=== PATIENT | female | born 1980 | race Caucasian/White ===

== ENCOUNTER → 2016-07-28 | Outpatient (CLI) | payer OTHER, BC ==
[2016-07-28 13:45] VITALS: BP 150/96; PULSE 91; RESP 16; TEMP 98.4; BMI 52.6
--- NOTE | 2016-07-28 14:09 | P.BASOAP ---
Subjective Principal diagnosis: Morbid obesity Patient seen today on follow-up for a diagnosis of morbid obesity. The patient has had a slight weight gain since her last visit in April. Other than that she has no new complaints. She underwent an upper endoscopy in April which showed only mild gastritis. She obtained her psychiatric evaluation last week. We have a medical clearance letter signed by her physician's campus administrative assistant. She has not had lab work. She did have an EKG performed at her primary care physician's office. Objective - Vital Signs Vital signs: Vital Signs Temp 98.4 F 07/28/16 13:40 Pulse 91 07/28/16 13:40 Resp 16 07/28/16 13:40 BP 150/96 07/28/16 13:40 Pulse Ox Intake & Output 07/27/16 07/28/16 07/28/16 18:59 06:59 18:59 Weight 143.471 kg - Exam Abdomen: Soft, nontender, nondistended Assessment/Plan (1) Morbid obesity Narrative/Plan: The patient discussed once again the upcoming sleeve gastrectomy procedure. The associated risks were reviewed in detail and the complication sheet was reviewed. We will await the patient's preoperative lab work. We'll schedule the patient for upcoming sleeve gastrectomy with the associated risks reviewed. Plan: Date: 07/28/16 Initial Weight: 140.523 kg Initial BMI: 51.5 Current Weight: 143.471 kg Current BMI: 52.6 Type of Surgery: Total Volume in Band: Previous Volume: Volume Removed: Volume Added: Band Size:
== END | disposition home or self-care (01) ==
LOC: BARWHC3 13:28
PROVIDERS: ATTEND Surgery
DX: Z01.818 Encounter for other preprocedural examination (principal)
CPT/HCPCS: 99211

== ENCOUNTER → 2016-08-03 | Outpatient (CLI) | payer OTHER, BC ==
[2016-08-03 13:42] VITALS: BMI 53.4
== END | disposition home or self-care (01) ==
LOC: BARWHC3 08:47
PROVIDERS: ATTEND Surgery
DX: Z71.3 Dietary counseling and surveillance (principal); E66.01 Morbid (severe) obesity due to excess calories; Z68.43 Body mass index [BMI] 50.0-59.9, adult
CPT/HCPCS: 97804

== ENCOUNTER 2016-09-25 05:57 | Inpatient (IN) | payer OTHER, BC ==
[~2016-09-25 05:57] MED LIST: DEXAMETHASONE SOD PHOSPHATE 10 MG/ML 1 ML VIAL IV ONE; ENOXAPARIN 60 MG/0.6 ML SYRINGE SQ ONE; MIDAZOLAM 2 MG/2 ML VIAL IV PRN; ONDANSETRON 4 MG/2 ML VIAL IVP ONE; SCOPOLAMINE 1.5MG/72HR PATCH TRANSDERM ONE; ceFAZolin 3 GM in SODIUM CHLORIDE 0.9% 100 ML IVPB ONE
[2016-09-25] MEDS: LACTATED RINGERS 1,000 ML IV SCH ×2 (06:38→23:39)
[2016-09-25] MEDS ORDERED: METHYLENE BLUE 15 MG in SODIUM CHLORIDE 0.9% 500 ML IRRIGATION ONE (07:06)
--- NOTE | 2016-09-25 07:28 | P.GSHP ---
History of Present Illness H&P Date: 09/25/16 Chief Complaint: Morbid obesity Patient here today for elective sleeve gastrectomy. Patient is been followed in the bariatric center since last year. She suffered with morbid obesity for the majority of her life. She has tried a variety of different weight loss diet and methods without sustained success. Denies DVT or dysphagia in the past. Recent upper endoscopy in April showed mild gastritis. Medical comorbidities include reflux disease. No upper abdominal surgeries in the past. BMI 49.7. Past Medical History Past Medical History: GERD/Reflux, Thyroid Disorder Additional Past Medical History / Comment(s): hypotension , hypothyroid. History of Any Multi-Drug Resistant Organisms: None Reported Past Surgical History: Appendectomy, Section, Tonsillectomy, Tubal Ligation, Uterine Ablation Additional Past Surgical History / Comment(s): x2, Past Anesthesia/Blood Transfusion Reactions: No Reported Reaction Past Psychological History: No Psychological Hx Reported Smoking Status: Never smoker Past Alcohol Use History: Occasional Past Drug Use History: None Reported - Past Family History Mother Family Medical History: Cancer Additional Family Medical History / Comment(s): lap band bariatric surgery Father Family Medical History: Coronary Artery Disease (CAD), Diabetes Mellitus, Hypertension Additional Family Medical History / Comment(s): Quadruple bypass at age 60, Medications and Allergies Home Medications Medication Instructions Recorded Confirmed Type Levothyroxine Sodium [Synthroid] 50 mcg PO DAILY 02/25/16 09/25/16 History Multivitamin [Men's Multi-Vitamin] 1 each PO DAILY 09/16/16 09/25/16 History Allergies Allergy/AdvReac Type Severity Reaction Status Date / Time No Known Allergies Allergy Verified 09/25/16 06:18 Surgical - Exam Vital Signs Temp Pulse Resp BP Pulse Ox 97.2 F L 70 16 126/62 97 09/25/16 06:37 09/25/16 06:37 09/25/16 06:37 09/25/16 06:37 09/25/16 06:37 Physical exam: General: Well-developed, well-nourished HEENT: Normocephalic, sclerae nonicteric Abdomen: Nontender, nondistended Extremities: No edema Neuro: Alert and oriented Assessment and Plan (1) Morbid obesity Narrative/Plan: Will proceed with sleeve gastrectomy at this time. The surgical risks were discussed in detail with the patient and her family. These risks were noted to include but not limited to bleeding, infection, leak, stenosis, abscess, peritonitis, fistula formation, chronic reflux, poor weight loss, [place], PE, DVT, and . The patient understands and wishes to proceed at this time. Status: Acute
[2016-09-25] MEDS ORDERED: GLYCOPYRROLATE 0.2 MG/ML 2 ML VIAL ONE (07:50)
[2016-09-25] MEDS ORDERED: PROPOFOL 10 MG/ML 20 ML VIAL IV ONE (07:50)
[2016-09-25] MEDS ORDERED: NEOSTIGMINE 1 MG/ML 10 ML VIAL ONE (07:50)
[2016-09-25] MEDS ORDERED: LIDOCAINE 1% INJ 10MG/ML (20 ML MDV) ONE (07:50)
[2016-09-25] MEDS ORDERED: ROCURONIUM BROMIDE 10 MG/ML 10 ML VIAL IV ONE (07:50)
[2016-09-25] MEDS ORDERED: SUCCINYLCHOLINE CHLORIDE 100 MG/5 ML SYR IV ONE (07:50)
[2016-09-25] MEDS ORDERED: MIDAZOLAM 2 MG/2 ML VIAL ONE (07:50)
[2016-09-25] MEDS ORDERED: HYDROmorphone (PF) 1 MG/ML ONE (07:50)
[2016-09-25] MEDS ORDERED: fentaNYL (PF) 50 MCG/ML 2 ML AMP ONE (07:50)
[2016-09-25] MEDS ORDERED: BUPIVACAIN-EPI 0.25%-1:200,000 30 ML VIAL SQ ONE ×2 (08:17)
[2016-09-25] MEDS ORDERED: LACTATED RINGERS 1,000 ML IV ONE (08:56)
[2016-09-25] MEDS ORDERED: KETOROLAC 30 MG/ML 1 ML VIAL IVP ONE (10:06)
[2016-09-25] MEDS ORDERED: NALOXONE 0.4 MG/ML 1 ML VIAL IV PRN (10:11)
[2016-09-25] MEDS ORDERED: diphenhydrAMINE 50 MG/ML 1 ML VIAL IVP PRN (10:11)
--- NOTE | 2016-09-25 10:16 | P.OP ---
Date of Procedure: 09/25/16 Procedure(s) Performed: PREOPERATIVE DIAGNOSIS: Morbid obesity, GERD POSTOPERATIVE DIAGNOSIS: Same PROCEDURE: Laparoscopic sleeve gastrectomy SURGEON: Adela EBL: Minimal ANESTHESIA: General COMPLICATIONS: None OPERATIVE PROCEDURE: Patient was placed in the operating table in the supine position. She was placed under general anesthesia at that time. The abdomen was prepped and draped in sterile fashion after the patient was placed in lithotomy. A 5 mm optical trocar was used to enter the abdominal cavity in the left upper quadrant. Insufflation took place to 15 millimeters mercury. An additional right subxiphoid 5 mm trocar was then placed under direct relation and then removed. 2 additional 5 mm trochars were placed in the right upper quadrant and left upper quadrant under direct visualization and a 15 mm trocar in the supraumbilical location. The liver was retracted using a medium Sergio liver retractor through the right subxiphoid trocar site. The hiatus was inspected. No visible hiatal hernia was seen. At that point I moved to the mid aspect of the greater curvature the stomach. The short gastric vasculature was divided using a LigaSure device proximally. I then switched and divided the short gastrics distally to a 3-4 cm from the pylorus. The dissection took place up to the left diaphragmatic crura at that point. The posterior short gastrics were likewise divided using the LigaSure device. Once the stomach was fully mobilized the blunt tipped 40-Polish bougie dilator was advanced into the stomach and advanced all the way to the prepyloric location. A black echelon 60 stapler was utilized and fired tangentially across the antrum taking care to avoid narrowing at the incisura angularis. Subsequent firings of the stapler took place. A total of 4 green echelon 60 staplers with seam guard took place proximally staying on the outer edge of our dilator. Once we reached the most proximal portion of the stomach a single firing of the gold echelon 60 stapler without seen guard took place. This only covered a distance of about 1 cm. The oral gastric tube was reinserted. The stomach was insufflated with approximately 100 mL of methylene blue. No evidence of leak or obstruction was seen. Tisseel fibrin glue was then sprayed along the entire length of the staple line. A single area of bleeding was identified at the most distal aspect of the staple line. This was controlled oh millimeter Ligaclip. At that time additional bleeding was identified. The distal aspect of the sleeve was then reapproximated to the gastrosplenic and gastrocolic ligament using a short running 20 strata fix suture. This was done to prevent kinking or twisting of the sleeve. The stomach remnant was removed from the 15 mm trocar site without difficulty. The fascia at the 15 more site was closed using interrupted 0 Vicryl sutures with the laparoscopic suture passer and Bob Carlos technique. The insufflation was evacuated. The skin at all 5 incisions were closed using 4-0 Monocryl sutures. Steri-Strips and sterile dressings were then applied. DISPOSITION: Stable to recovery room
[2016-09-25] MEDS: HYDROmorphone 1 MG/ML 1 ML SYRINGE IVP PRN ×4 (10:30→20:39)
[2016-09-25] MEDS: 0.9% NACL WITH KCL 20 MEQ/L 1,000 ML IV SCH ×3 (12:27→20:40)
[2016-09-25] MEDS: ONDANSETRON 4 MG/2 ML VIAL IVP PRN ×2 (13:29→20:39)
[2016-09-25] MEDS: ALBUTEROL NEBULIZED 2.5 MG/3 ML INHALATION SCH ×2 (13:30→21:57)
[2016-09-25] MEDS: SIMETHICONE 40 MG/0.6 ML DROPS 2,000 MG/30 ML BOTTLE PO PRN (16:25)
[2016-09-25] MEDS: HYOSCYAMINE ORAL DROPS 1.875 MG/15 ML BOTTLE PO PRN (16:26)
[2016-09-26] MEDS: ONDANSETRON 4 MG/2 ML VIAL IVP PRN ×2 (03:48→12:42)
[2016-09-26] MEDS: HYDROmorphone 1 MG/ML 1 ML SYRINGE IVP PRN (03:48)
[2016-09-26] MEDS: SIMETHICONE 40 MG/0.6 ML DROPS 2,000 MG/30 ML BOTTLE PO PRN (03:50)
[2016-09-26] MEDS: HYOSCYAMINE ORAL DROPS 1.875 MG/15 ML BOTTLE PO PRN ×2 (03:50→09:53)
[2016-09-26] MEDS: 0.9% NACL WITH KCL 20 MEQ/L 1,000 ML IV SCH (04:02)
[2016-09-26] MEDS: METOCLOPRAMIDE 5 MG/ML 2 ML VIAL IVP PRN ×3 (07:08→23:54)
[2016-09-26] MEDS: ALBUTEROL NEBULIZED 2.5 MG/3 ML INHALATION SCH ×4 (08:52→19:06)
[2016-09-26 09:04] LABS: Basophils % (A) 0 %; CHCM 34.3; Eosinophils % (A) 0 %; HDW 3.35; HGB 12.8 gm/dL (11.4-16.0); Luc # (Auto) 0.11; Luc % (Auto) 1; Lymphocytes # (A) 1.3 k/uL (1.0-4.8); Lymphocytes % (A) 12 %; MCH 31.5 pg (25.0-35.0); MCHC 34.6 g/dL (31.0-37.0); MCV 90.9 fL (80.0-100.0); Mean Platelet Volume 7.4; Monocytes # (A) 0.5 k/uL (0-1.0); Monocytes % (A) 5 %; Neutrophils # (A) 8.9 k/uL (1.3-7.7); Neutrophils % (A) 82 %; RBC 4.07 m/uL (3.80-5.40); RDW 13.4 % (11.5-15.5); WBC 10.9 k/uL (3.8-10.6); WBC (Perox) 11.07
[2016-09-26 09:25] LABS: Anion Gap 12 mmol/L; Calcium 8.5 mg/dL (8.4-10.2); Carbon Dioxide 21 mmol/L (22-30); Chloride 106 mmol/L (98-107); Non-African American GFR(MDRD) >60 (>60 ml/min/1.73 sqM); Sodium 139 mmol/L (137-145)
[2016-09-26 09:29] LABS: Blood Urea Nitrogen 6 mg/dL (7-17); Magnesium 1.9 mg/dL (1.6-2.3); Phosphorous 2.4 mg/dL (2.5-4.5); Potassium 4.1 mmol/L (3.5-5.1)
[2016-09-26] MEDS: ENOXAPARIN 40 MG/0.4 ML SYRINGE SQ SCH ×2 (09:38→22:17)
[2016-09-26] MEDS: PANTOPRAZOLE 40 MG/10 ML VIAL IV SCH (09:38)
[2016-09-26] MEDS ORDERED: SODIUM CHLORIDE 0.9% 1,000 ML BAG ONE (10:34)
[2016-09-26] MEDS: 1: MVI, ADULT NO.4 WITH VIT K 10 ML, THIAMINE 100 MG, FOLIC ACID 1 MG, POTASSIUM CHLORID IV SCH ×12 (10:34→18:08)
[2016-09-26 12:57] VITALS: BMI 49.7
--- NOTE | 2016-09-26 13:29 | FL ---
EXAMINATION TYPE: FL UGI DATE OF EXAM: 09/26/2016 11:20 AM COMPARISON: NONE HISTORY: Postop bariatric surgery, gastric sleeve TECHNIQUE: Patient was given 25 cc of Omnipaque 350 and attention directed to the gastroesophageal ju nction, 38 seconds fluoroscopy time supplied. 2 images obtained. FINDINGS: There is no extravasation of contrast. Postop changes are noted to the stomach. No obstruct ion to flow. Basilar atelectatic changes are present. IMPRESSION: No evident complication status post bariatric surgery
[2016-09-26] MEDS ORDERED: SCOPOLAMINE 1.5MG/72HR PATCH TRANSDERM STA (14:17)
[2016-09-26] MEDS ORDERED: SODIUM CHLORIDE 0.9% 1,000 ML IV ONE (14:18)
--- NOTE | 2016-09-26 14:23 | P.PN ---
Subjective Principal diagnosis: Morbid obesity Patient doing well today. She is tolerating her clear liquid diet. She was nauseous last night but that is improving. Her blood cell count today is 10.9. Upper GI shows no evidence of leak or obstruction. Objective - Vital Signs Vital signs: Vital Signs Temp 98.6 F 09/26/16 07:00 Pulse 111 H 09/26/16 08:50 Resp 22 09/26/16 08:50 BP 169/90 09/26/16 07:00 Pulse Ox 98 09/26/16 08:50 Intake & Output 09/25/16 09/26/16 09/26/16 18:59 06:59 18:59 Intake Total 1300 1800 150 Output Total 1005 1000 300 Balance 295 800 -150 Weight 139.706 kg Intake: IV 1300 1800 150 0.9% NaCl with KCl 20 Meq 1800 150 /l 1,000 ml @ 150 mls/hr IV .Q6H40M [facility] Rx#: [id number] Output: Urine 1000 1000 300 Estimated Blood Loss 5 Other: Voiding Method Toilet - Exam Abdomen: Soft, nondistended, mild incisional tenderness - Labs CBC & Chem 7: 09/26/16 08:19 09/26/16 08:19 Labs: Abnormal Lab Results - Last 24 Hours (Table) 09/26/16 09/26/16 Range/Units 08:19 08:19 WBC 10.9 H (3.8-10.6) k/uL Neutrophils # 8.9 H (1.3-7.7) k/uL Carbon Dioxide 21 L (22-30) mmol/L BUN 6 L (7-17) mg/dL Phosphorus 2.4 L (2.5-4.5) mg/dL Assessment and Plan (1) Morbid obesity Narrative/Plan: Continue bariatric clear liquid diet. Activity levels. Add Toradol for pain control. Status: Acute
[2016-09-26] MEDS: KETOROLAC 30 MG/ML 1 ML VIAL IVP SCH ×2 (16:13→23:54)
--- NOTE | 2016-09-26 17:42 | P.CONS ---
History of Present Illness - Reason for Consult Consult date: 09/26/16 Medical management - History of Present Illness 36 yr old with morbid obesity is brought into the hospital for elective sleeve gastrectomy PMH hypothyroidism today states to have nausea, denies having headaches, blurry vision chest pain, ANTONIA does complaint of abdominal discomfort, diffuse. No urinary urgency or frequency reported. Review of Systems All systems: negative (Noted in HPI) Past Medical History Past Medical History: GERD/Reflux, Thyroid Disorder Additional Past Medical History / Comment(s): hypotension , hypothyroid. History of Any Multi-Drug Resistant Organisms: None Reported Past Surgical History: Appendectomy, Section, Tonsillectomy, Tubal Ligation, Uterine Ablation Additional Past Surgical History / Comment(s): x2, Past Anesthesia/Blood Transfusion Reactions: No Reported Reaction Past Psychological History: No Psychological Hx Reported Smoking Status: Never smoker Past Alcohol Use History: Occasional Past Drug Use History: None Reported - Past Family History Mother Family Medical History: Cancer Additional Family Medical History / Comment(s): lap band bariatric surgery Father Family Medical History: Coronary Artery Disease (CAD), Diabetes Mellitus, Hypertension, Prostate Disorder Additional Family Medical History / Comment(s): Quadruple bypass at age 60, Medications and Allergies Home Medications Medication Instructions Recorded Confirmed Type Levothyroxine Sodium [Synthroid] 50 mcg PO DAILY 02/25/16 09/25/16 History Multivitamin [Men's Multi-Vitamin] 1 tab PO DAILY 09/16/16 09/25/16 History Allergies Allergy/AdvReac Type Severity Reaction Status Date / Time No Known Allergies Allergy Verified 09/25/16 10:53 Physical Exam Vitals: Vital Signs Temp Pulse Pulse Resp BP Pulse Ox 09/26/16 16:14 98.6 F 95 16 125/85 09/26/16 08:50 111 H 22 98 09/26/16 07:00 98.6 F 97 16 169/90 98 09/26/16 02:00 97.7 F 90 16 179/83 98 09/25/16 23:25 96 09/25/16 20:45 98.2 F 79 17 132/92 98 09/25/16 20:39 17 Intake and Output 09/26/16 09/26/16 09/26/16 06:59 14:59 22:59 Intake Total 5143 916 7247 Output Total 800 300 Balance 1000 -150 1000 Intake: IV 1800 150 0.9% NaCl with KCl 20 Meq 1800 150 /l 1,000 ml @ 150 mls/hr IV .Q6H40M [facility] Rx#: [id number] Intake, IV Titration 1000 Amount Sodium Chloride 0.9% 1, 1000 000 ml @ 999 mls/hr IV . Q1H1M [facility] Rx#:[id number] Output: Urine 800 300 Other: Weight 139.706 kg Patient Weight 09/27/16 06:59 Weight 139.706 kg - Constitutional General appearance: morbidly obese - EENT Eyes: PERRLA - Neck Neck: normal ROM, no rigidity - Respiratory Respiratory: bilateral: CTA, negative: dullness, rales, rhonchi, wheezing - Cardiovascular Rhythm: regular (rhythm however tachycardic.) Heart sounds: normal: S1, S2 Abnormal Heart Sounds: no systolic murmur - Gastrointestinal General gastrointestinal: decreased bowel sounds, soft Localized gastrointestinal: tender: diffuse - Integumentary Integumentary: normal - Neurologic Neurologic: CNII-XII intact - Psychiatric Psychiatric: A&O x's 3, appropriate affect Results CBC & Chem 7: 09/26/16 08:19 09/26/16 08:19 Labs: Abnormal Lab Results - Last 24 Hours (Table) 09/26/16 09/26/16 Range/Units 08:19 08:19 WBC 10.9 H (3.8-10.6) k/uL Neutrophils # 8.9 H (1.3-7.7) k/uL Carbon Dioxide 21 L (22-30) mmol/L BUN 6 L (7-17) mg/dL Phosphorus 2.4 L (2.5-4.5) mg/dL Assessment and Plan Plan: 1. Morbid obesity, s/p sleeve gastrectomy 2. hypothyroidism Plan 1 l bolus ivf post op management Per Dr Hand Pain control IS Encourage ambulation Thank you for the consultation, will follow the pt along with you.
[2016-09-27] MEDS: LACTATED RINGERS 1,000 ML IV SCH (02:07)
[2016-09-27] MEDS: KETOROLAC 30 MG/ML 1 ML VIAL IVP SCH ×2 (06:08→13:02)
[2016-09-27] MEDS ORDERED: LEVOTHYROXINE 50 MCG TAB PO SCH (06:30)
[2016-09-27] MEDS ORDERED: SODIUM CHLORIDE 0.9% 1,000 ML BAG ONE (06:43)
[2016-09-27] MEDS: 1: MVI, ADULT NO.4 WITH VIT K 10 ML, THIAMINE 100 MG, FOLIC ACID 1 MG, POTASSIUM CHLORID IV SCH ×6 (06:43)
[2016-09-27] MEDS: ALBUTEROL NEBULIZED 2.5 MG/3 ML INHALATION SCH ×2 (07:34→11:21)
--- NOTE | 2016-09-27 07:52 | P.PN ---
Subjective Principal diagnosis: Morbid obesity Patient doing well today. No further nausea. Still with little oral intake. Denies pain. No tachycardic Objective - Vital Signs Vital signs: Vital Signs Temp 98.1 F 09/27/16 04:04 Pulse 95 09/27/16 04:04 Resp 18 09/27/16 04:04 BP 148/81 09/27/16 04:04 Pulse Ox 92 L 09/27/16 04:04 Intake & Output 09/26/16 09/27/16 09/27/16 18:59 06:59 18:59 Intake Total 1983 1021.2 Output Total 300 Balance 1683 1021.2 Weight 139.706 kg Intake: IV 150 0.9% NaCl with KCl 20 Meq 150 /l 1,000 ml @ 150 mls/hr IV .Q6H40M [facility] Rx#: [id number] Intake, IV Titration 181 1021.2 Amount Mvi, Adult No.4 with Vit 813 1021.2 K 10 ml Thiamine 100 mg Folic Acid 1 mg Potassium Chloride 20 meq In Sodium Chloride 0.9% 1, 000 ml @ 100 mls/hr IV . BY DURATION [facility] Rx#: [id number] Sodium Chloride 0.9% 1, 1000 000 ml @ 999 mls/hr IV . Q1H1M [facility] Rx#:[id number] Oral 20 Output: Urine 300 Other: Voiding Method Toilet # Voids 2 - Exam Abdomen: Soft, nondistended, incisions clean and dry, minimal tenderness at the incision site - Labs CBC & Chem 7: 09/26/16 08:19 09/26/16 08:19 Labs: Abnormal Lab Results - Last 24 Hours (Table) 09/26/16 09/26/16 Range/Units 08:19 08:19 WBC 10.9 H (3.8-10.6) k/uL Neutrophils # 8.9 H (1.3-7.7) k/uL Carbon Dioxide 21 L (22-30) mmol/L BUN 6 L (7-17) mg/dL Phosphorus 2.4 L (2.5-4.5) mg/dL Assessment and Plan (1) Morbid obesity Narrative/Plan: Continue bariatric clear liquids. Monitor the patient's input today. Anticipate possible discharge later today. Status: Acute
[2016-09-27] MEDS: PANTOPRAZOLE 40 MG/10 ML VIAL IV SCH (08:00)
[2016-09-27] MEDS: ENOXAPARIN 40 MG/0.4 ML SYRINGE SQ SCH (08:00)
[2016-09-27 08:04] VITALS: BP 146/92; PULSE 83; RESP 16; TEMP 97.9
== END 2016-09-27 14:16 | disposition home or self-care (01) | DRG 621 ==
LOC: 2ORWHC 05:57 → 3SUR 09:56
PROVIDERS: ADMIT Surgery; ATTEND Surgery
PROC: 0DB64Z3 Excision of Stomach, Percutaneous Endoscopic Approach, Vertical (ICD-10-PCS; principal; 2016-09-25 07:45)
DX: E66.01 Morbid (severe) obesity due to excess calories (principal); E03.9 Hypothyroidism, unspecified; Z68.42 Body mass index [BMI] 45.0-49.9, adult; K21.9 Gastro-esophageal reflux disease without esophagitis; K29.70 Gastritis, unspecified, without bleeding; R11.0 Nausea; Z71.3 Dietary counseling and surveillance; Z90.49 Acquired absence of other specified parts of digestive tract; Z98.51 Tubal ligation status; Z79.899 Other long term (current) drug therapy; Z83.49 Family history of other endocrine, nutritional and metabolic diseases; Z80.9 Family history of malignant neoplasm, unspecified; Z84.2 Family history of other diseases of the genitourinary system; Z83.3 Family history of diabetes mellitus; Z82.49 Family history of ischemic heart disease and other diseases of the circulatory system; Z86.79 Personal history of other diseases of the circulatory system; Z87.42 Personal history of other diseases of the female genital tract
CPT/HCPCS: 74240; 80051; 81025; 82310; 82565; 83735; 84100; 84520; 85025; 88307

== ENCOUNTER → 2016-10-06 | Outpatient (CLI) | payer OTHER, BC ==
[2016-10-06 14:35] VITALS: BP 140/85; PULSE 83; TEMP 97.8; BMI 48.6
--- NOTE | 2016-10-06 15:10 | P.BASOAP ---
Subjective Principal diagnosis: Morbid obesity patient is here today for her first postoperative visit. her surgery was September 25. weight loss is approximately 28 pounds since that time. she is having some mild heartburn at times. No pain. Appetite is minimal. No nausea or vomiting. she did have a rash at the Steri-Strip site. Heart rate is normal. Afebrile. Objective - Vital Signs Vital signs: Vital Signs Temp 97.8 F 10/06/16 14:30 Pulse 83 10/06/16 14:30 Resp BP 140/85 10/06/16 14:30 Pulse Ox Intake & Output 10/05/16 10/06/16 10/06/16 18:59 06:59 18:59 Weight 132.676 kg - Exam abdomen: Soft, nondistended, nontender, some slight rash around each incision site Assessment/Plan (1) Morbid obesity Narrative/Plan: continue dietary and exercise regimen. continue hydrocortisone cream for the rash around the incision sites. continue antiacid therapy. follow-up 2 weeks and we'll check one month labs at that time. Plan: Date: 10/06/16 Initial Weight: 140.523 kg Initial BMI: 51.5 Current Weight: 132.676 kg Current BMI: 48.6 Type of Surgery: Total Volume in Band: Previous Volume: Volume Removed: Volume Added: Band Size:
== END ==
LOC: BARWHC3 13:34
PROVIDERS: ATTEND Surgery
DX: E66.01 Morbid (severe) obesity due to excess calories (principal); Z79.899 Other long term (current) drug therapy
CPT/HCPCS: 97803; 99211

== ENCOUNTER → 2016-10-12 | Outpatient (CLI) | payer OTHER, BC ==
--- NOTE | 2016-10-12 15:10 | FL ---
EXAMINATION TYPE: FL UGI DATE OF EXAM: 10/12/2016 2:58 PM LIMITED UGI: CLINICAL HISTORY: Gastric sleeve surgery roughly 2 weeks ago with worsening pain with drinking liqui ds over last 5 days. TECHNIQUE: Limited esophagram is performed utilizing less than 10 oz of Omnipaque 350. A total of 44 seconds of fluoroscopic time was utilized during procedure. COMPARISON: Prior Limited upper GI study September 26, 2016. FINDINGS: The patient swallowed contrast without difficulty or delay. Esophageal peristalsis and mo tility are within normal limits. There is good flow of contrast along the diaphragmatic hiatus into proximal gastric sleeve with and mild delay flow from sleeve into residual pylorus and duodenal sweep . Patient remains asymptomatic. There is no evidence of contrast extravasation to suggest leak. IMPRESSION: No evidence of leak or significant obstruction status post recent gastric sleeve surgery.
--- NOTE | 2016-10-12 15:40 | CT ---
EXAMINATION TYPE: CT abdomen w con DATE OF EXAM: 10/12/2016 3:12 PM HISTORY: Upper Abdomen pain over last 5 days. Post OP Gastric sleeve in September 2016 CT DLP: 1363mGycm Automated Exposure Control for Dose Reduction was Utilized. CONTRAST: CT scan of the abdomen is performed with IV Contrast, patient injected with 100 mL of Omnipaque 300. COMPARISON: None. FINDINGS: LUNG BASES: No significant abnormality is appreciated. LIVER/GB: No significant abnormality is appreciated. PANCREAS: No significant abnormality is seen. SPLEEN: No significant abnormality is seen. ADRENALS: No significant abnormality is seen. KIDNEYS: No significant abnormality is seen. BOWEL: Surgical changes from gastric sleeve procedure are identified. Small hiatal hernia is noted. C ontrast is seen in nondistended sleeve below diaphragm extending into the nondilated proximal small b owel loops of the central abdomen. Contrast does not reach colonic level. There is no suspicious smal l or large bowel dilatation. No extravasation of contrast is seen. No pneumoperitoneum is noted. LYMPH NODES: No greater than 1cm abdominal lymph nodes are appreciated. OSSEOUS STRUCTURES: No significant abnormality is seen. OTHER: Nonspecific 8 mm soft tissue nodule anterior left mid abdominal wall on axial image 43. IMPRESSION: No significant finding is seen to account for patient's clinical symptoms. No bowel obst ruction is noted.
== END | disposition home or self-care (01) ==
LOC: RADFLMAIN 14:05
PROVIDERS: ATTEND Surgery
DX: R10.84 Generalized abdominal pain (principal); R10.9 Unspecified abdominal pain; Z98.84 Bariatric surgery status
CPT/HCPCS: 74240; 74160; Q9967

== ENCOUNTER → 2016-10-20 | Outpatient (CLI) | payer OTHER, BC ==
--- NOTE | 2016-10-20 14:39 | P.BASOAP ---
Subjective Principal diagnosis: Morbid obesity Patient seen in the clinic today on follow-up. She had her laparoscopic sleeve gastrectomy performed on 09/25. She was last seen in the office on 10/06. A proximally 10 days ago she began experiencing pain with swallowing both liquids and solids. Denied fevers or chills. She was brought in as an outpatient early last week and had a CAT scan and upper GI performed both of which were dictated as being normal. Her labs show a normal white blood cell count. Today she is afebrile. Her heart rate is normal. Upon my review of the CAT scan performed last week there does appear to be some inflammatory changes involving the proximal sleeve. There may be a contained extraluminal contrast collection in the proximal sleeve with a small foci of air. The patient states her symptoms have dramatically improved since early last week. She does admit that she is still behind when it comes to daily protein and liquid requirements. She estimates approximately 40 ounces of liquids per day. She says her pain is absent unless she takes a large swallow of liquid or solid. Objective - Vital Signs Vital signs: Intake & Output 10/19/16 10/20/16 10/20/16 18:59 06:59 18:59 Weight 127.323 kg - Exam Abdomen: Soft, nondistended, nontender, incisions clean and dry Assessment/Plan (1) Morbid obesity Narrative/Plan: The patient I discussed the CAT scan findings in detail. We reviewed her recent lab work as well. Plan at this time is to repeat her CT abdomen and pelvis to evaluate for any changes for the better or worse. Continue primarily a liquid diet for now. We'll rediscuss these findings with the patient either in person this afternoon after the study is performed or possibly by phone depending on those results. Plan: Date: Initial Weight: 140.523 kg Initial BMI: Current Weight: 127.323 kg Current BMI: Type of Surgery: Total Volume in Band: Previous Volume: Volume Removed: Volume Added: Band Size:
--- NOTE | 2016-10-20 15:21 | CT ---
EXAMINATION TYPE: CT abdomen w con DATE OF EXAM: 10/20/2016 2:56 PM COMPARISON: October 12, 2016 HISTORY: Pt states of epigastric pain, hx of gastric sleeve on September [address] DLP: 1388 mGycm CONTRAST: CT scan of the abdomen is performed with Oral Contrast and with IV Contrast, patient injected with 10 0 mL of Omnipaque 300. FINDINGS: LUNG BASES-: No visible nodule. No infiltrate. LIVER/GB: No calcified gallstones. No space occupying hepatic lesion. Biliary tree is of normal ca liber. PANCREAS: No inflammation. No distinct mass. SPLEEN: No splenic enlargement. No lesion seen. ADRENALS: No nodule. No thickening. KIDNEYS/BLADDER: No hydronephrosis. No nephrolithiasis. No disctinct renal mass. Urinary bladder g rossly unremarkable. BOWEL: Again noted are postsurgical changes of sleeve gastrectomy. Previously noted Gastric strandin g is improved although does persist. There continues to be a small focus of air adjacent to the proxi mal sleeve component near the fundus which is felt to reflect small improving not contained leak. The focus of air currently measures 5 mm versus 1.6 cm previously. No evidence for drainable abscess. No evidence for contrast extravasation. Stable hiatal hernia. Appendectomy changes. GENITAL ORGANS: Right ovarian cyst measuring 2.4 cm. LYMPH NODES: No greater than 1cm abdominal or pelvic lymph nodes are appreciated. AORTA: No significant abnormality. OSSEOUS STRUCTURES: No significant abnormality is seen. OTHER: No significant additional abnormality is seen. IMPRESSION: 1. Patient is status post sleeve gastrectomy with small contained leak near the gastric fundus again identified however appears to be improved and smaller in the interval.
== END | disposition home or self-care (01) ==
LOC: BARWHC3 13:14
PROVIDERS: ATTEND Surgery
DX: R10.13 Epigastric pain (principal)
CPT/HCPCS: 74160; 99211; Q9967

== ENCOUNTER → 2016-11-03 | Outpatient (CLI) | payer OTHER, BC ==
[2016-11-03 15:07] VITALS: BP 130/80; PULSE 76; RESP 16; TEMP 98.2; BMI 45.4
--- NOTE | 2016-11-03 18:33 | PN ---
DATE OF SERVICE: 11/03/2016 CHIEF COMPLAINT: Morbid obesity. INTERVAL HISTORY: Patient is doing much better today. Denies any pain at this time. Still feels some fullness at times. She is tolerating about 55 ounces of liquids per day and about 50 to 60 grams of protein per day. Still finds more dysphagia to liquids then she does with solids. She has had an 8 pound weight loss the last 2 weeks. Denies fevers or chills. She is afebrile with no tachycardia in the office today. She is due for one month lab works at this time. PHYSICAL EXAM: Abdomen is soft, nontender, nondistended. Incisions are clean, dry. IMPRESSION: A 36-year-old female status post sleeve gastrectomy with suspected small self-contained apical leak. PLAN: 1. Continue bariatric diet. 2. Dietary evaluation today. 3. One month lab work today. 4. Patient will follow up with me in 4 weeks. 5. Still will plan follow up CT scan possible at that time to confirm resolution.
== END | disposition home or self-care (01) ==
LOC: BARWHC3 14:49
PROVIDERS: ATTEND Surgery
DX: E66.01 Morbid (severe) obesity due to excess calories (principal); K90.89 Other intestinal malabsorption; E55.9 Vitamin D deficiency, unspecified; Z98.84 Bariatric surgery status
CPT/HCPCS: 97803; 99211

== ENCOUNTER → 2016-12-08 | Outpatient (CLI) | payer OTHER, BC ==
[2016-12-08 12:10] VITALS: BP 130/87; PULSE 75; RESP 16; TEMP 98.3; BMI 42.3
--- NOTE | 2016-12-08 12:28 | P.BASOAP ---
Subjective Principal diagnosis: Morbid obesity Patient doing well today. She is continuing to do well with her protein intake. She had 1 episode of vomiting after she drank a large volume of liquids and a short period of time. Denies pain. No significant heartburn. She had a recent UTI and was prescribed an antibiotic for that. At the time of her urinalysis her urobilinogen was apparently elevated although I do not have that urinalysis to review at this time as it was performed outside of our tone. She does have some skin irritation at skin folds and is requesting nystatin. She is due for lab work today. No fevers. Objective - Vital Signs Vital signs: Vital Signs Temp 98.3 F 12/08/16 12:03 Pulse 75 12/08/16 12:03 Resp 16 12/08/16 12:03 BP 130/87 12/08/16 12:03 Pulse Ox Intake & Output 12/07/16 12/08/16 12/08/16 18:59 06:59 18:59 Weight 115.258 kg - Exam Abdomen: Soft, nontender, nondistended Assessment/Plan (1) Morbid obesity Narrative/Plan: We'll check lab work at this time. The patient I discussed the options of repeating her CAT scan but decided to hold off given the fairly rapid improvement in the desire to avoid any additional radiation exposure. We'll prescribe nystatin for the skin irritation. Continue following dietary and exercise regimen. Follow-up in 1 month. Plan: Date: 12/08/16 Initial Weight: 140.523 kg Initial BMI: 51.5 Current Weight: 115.258 kg Current BMI: 42.3 Type of Surgery: Total Volume in Band: Previous Volume: Volume Removed: Volume Added: Band Size:
== END | disposition home or self-care (01) ==
LOC: BARWHC3 11:55
PROVIDERS: ATTEND Surgery
DX: E66.01 Morbid (severe) obesity due to excess calories (principal); E55.9 Vitamin D deficiency, unspecified; K90.89 Other intestinal malabsorption; Z68.41 Body mass index [BMI] 40.0-44.9, adult
CPT/HCPCS: 99211

== ENCOUNTER → 2017-01-19 | Outpatient (CLI) | payer OTHER, BC ==
[2017-01-19 14:05] VITALS: BP 125/91; PULSE 82; TEMP 97.8; BMI 40.3
--- NOTE | 2017-01-19 14:58 | P.BASOAP ---
Subjective Principal diagnosis: Morbid obesity Patient doing well today. She was able to complete her 5K recently. She is already signed up for another one in 2 weeks. She had her lab work performed on January 16. This would be considered her 3 month labs. She has lost 12 pounds since her visit 6 weeks ago. Her labs did show a low B12 of 178 and a low vitamin D of 14.2. No supplements other than a multivitamin currently. Denies hunger. Minimal reflux symptoms. Protein intake 40-50 g daily. Denies abdominal pain. Objective - Vital Signs Vital signs: Vital Signs Temp 97.8 F 01/19/17 14:01 Pulse 82 01/19/17 14:01 Resp BP 125/91 01/19/17 14:01 Pulse Ox Intake & Output 01/18/17 01/19/17 01/19/17 18:59 06:59 18:59 Weight 109.905 kg - Exam Abdomen: Soft, nontender, nondistended Assessment/Plan (1) Morbid obesity Narrative/Plan: Patient has some recommendations from dietary today on how to improve her protein intake. Continue antiacid therapy. Continue exercise regimen. Plan: Date: 01/19/17 Initial Weight: 140.523 kg Initial BMI: 51.5 Current Weight: 109.905 kg Current BMI: 40.3 Type of Surgery: Total Volume in Band: Previous Volume: Volume Removed: Volume Added: Band Size:
== END | disposition home or self-care (01) ==
LOC: BARWHC3 13:51
PROVIDERS: ATTEND Surgery
DX: E66.01 Morbid (severe) obesity due to excess calories (principal)
CPT/HCPCS: 97803; 99211

== ENCOUNTER → 2017-05-11 | Outpatient (CLI) | payer OTHER, BC ==
[2017-05-11 15:23] VITALS: BP 125/81; PULSE 75; RESP 20; TEMP 97.7; BMI 36.1
--- NOTE | 2017-05-11 15:31 | P.BASOAP ---
Subjective Progress Note Date: 05/11/17 Principal diagnosis: Morbid obesity Patient doing well today. Denies heartburn. Better protein and liquid intake. Good weight loss of 17 pounds over the last 8 weeks. Still complains of a mild rash beneath her pannus. Her labs were recently checked. Her vitamin B12 and vitamin D are now normal. Hemoglobin is normal. Objective - Vital Signs Vital signs: Vital Signs Temp 97.7 F 05/11/17 15:19 Pulse 75 05/11/17 15:19 Resp 20 05/11/17 15:19 BP 125/81 05/11/17 15:19 Pulse Ox Intake & Output 05/10/17 05/11/17 05/11/17 18:59 06:59 18:59 Weight 98.475 kg - Exam Abdomen: Soft, nontender, nondistended Assessment/Plan (1) Morbid obesity Narrative/Plan: The patient's recent labs were reviewed. We'll plan follow-up lab work at the one-year marked. Continue multivitamin plus B12 and vitamin D. The patient will try taking her Prilosec every other day to see how her heartburn feels. Follow-up 6-8 weeks. Plan: Date: 05/11/17 Initial Weight: 140.523 kg Initial BMI: 51.5 Current Weight: 98.475 kg Current BMI: 36.1 Type of Surgery: Total Volume in Band: Previous Volume: Volume Removed: Volume Added: Band Size:
== END | disposition home or self-care (01) ==
LOC: BARWHC3 14:32
PROVIDERS: ATTEND Surgery
DX: E66.01 Morbid (severe) obesity due to excess calories (principal); Z68.36 Body mass index [BMI] 36.0-36.9, adult; Z71.3 Dietary counseling and surveillance
CPT/HCPCS: 97803; 99211

== ENCOUNTER → 2017-08-10 | Outpatient (CLI) | payer OTHER, BC ==
[2017-08-10 14:41] VITALS: BP 111/83; PULSE 82; RESP 16; TEMP 98.3; BMI 34.2
--- NOTE | 2017-08-10 14:42 | P.BASOAP ---
Subjective Progress Note Date: 08/10/17 Principal diagnosis: Morbid obesity Patient here today on follow-up. She is 10 months post sleeve gastrectomy. Doing well. She has had some episodes recently were her blood pressure was on the low side. No nausea or vomiting. No heartburn. Denies pain. Still having a rash beneath the pannus. Also has pain from the hanging skin she states. Still taking her B12 and vitamin D supplementation. Objective - Exam Abdomen: Mild rash beneath pannus, nontender Assessment/Plan (1) Morbid obesity Narrative/Plan: Continue B12 and vitamin D supplementation. Follow-up 6-8 weeks and we'll checked 1 year labs at that time. Stop taking omeprazole at this time. We'll plan scheduling plastic surgery evaluation following next visit. Plan: Date: Initial Weight: 140.523 kg Initial BMI: Current Weight: Current BMI: Type of Surgery: Total Volume in Band: Previous Volume: Volume Removed: Volume Added: Band Size:
== END | disposition home or self-care (01) ==
LOC: BARWHC3 14:05
PROVIDERS: ATTEND Surgery
DX: Z09 Encounter for follow-up examination after completed treatment for conditions other than malignant neoplasm (principal); E66.9 Obesity, unspecified; I95.9 Hypotension, unspecified; G89.28 Other chronic postprocedural pain; Z98.84 Bariatric surgery status
CPT/HCPCS: 99211

== ENCOUNTER → 2018-01-04 | Outpatient (CLI) | payer OTHER, BC ==
[2018-01-04 14:27] VITALS: BP 121/79; PULSE 76; RESP 18; TEMP 98.1; BMI 35.4
--- NOTE | 2018-01-04 14:42 | P.BASOAP ---
Subjective Progress Note Date: 01/04/18 Principal diagnosis: Morbid obesity Patient doing well today. The patient was last seen in July. She missed her one year appointment. She had her 1 year labs performed. Her vitamin D was slightly low. Otherwise her labs looked good. Still having issues with rash beneath her pannus. Interested in plastic surgery evaluation. Denies pain. No GERD. Objective - Vital Signs Vital signs: Vital Signs Temp 98.1 F 01/04/18 14:11 Pulse 76 01/04/18 14:11 Resp 18 01/04/18 14:11 BP 121/79 01/04/18 14:11 Pulse Ox Intake & Output 01/03/18 01/04/18 01/04/18 18:59 06:59 18:59 Weight 96.434 kg - Exam Abdomen: Soft, nondistended, slight rash beneath pannus Assessment/Plan (1) Morbid obesity Narrative/Plan: Continue dietary and exercise regimen. We'll make appointment to see plastic surgery. Continue vitamin D and B12 supplementation. Follow-up 4 months. Plan: Date: 01/04/18 Initial Weight: 140.523 kg Initial BMI: 51.5 Current Weight: 96.434 kg Current BMI: 35.4 Type of Surgery: Total Volume in Band: Previous Volume: Volume Removed: Volume Added: Band Size:
== END | disposition home or self-care (01) ==
LOC: BARWHC3 13:52
PROVIDERS: ATTEND Surgery
DX: E66.01 Morbid (severe) obesity due to excess calories (principal); R21 Rash and other nonspecific skin eruption
CPT/HCPCS: 97803; 99211

== ENCOUNTER → 2022-11-17 | Outpatient (CLI) | payer MEDICAID, BC ==
[2022-11-17 15:16] VITALS: BP 148/82; PULSE 80; RESP 16; TEMP 97.7; BMI 48.1
--- NOTE | 2022-11-17 15:45 | P.BASOAP ---
Subjective Progress Note Date: 11/17/22 Principal diagnosis: Morbid obesity 42-year-old female known to our service. She underwent sleeve gastrectomy 6 years ago. She was last seen 5 years ago. Patient says she was able to keep her weight off up until the last 1.5 years. She was around 2:30 and since then she has gained 60 pounds. Recently patient has had more GERD symptoms. She is taking Tums for heartburn. She is also having relatively new onset right upper quadrant pain. She has a history of previous cholecystectomy. Patient has not had blood work from our office in many years. Denies rectal bleeding or melena. Objective - Vital Signs Vital signs: Vital Signs Temp 97.7 F 11/17/22 15:14 Pulse 80 11/17/22 15:14 Resp 16 11/17/22 15:14 BP 148/82 11/17/22 15:14 Pulse Ox FiO2 Intake & Output 11/16/22 11/17/22 11/17/22 18:59 06:59 18:59 Weight 131.088 kg - Exam Abdomen: Soft, nontender, nondistended Assessment/Plan (1) Morbid obesity Narrative/Plan: 42-year-old female with recent weight gain. Patient also has GERD and right upper quadrant pain. We'll proceed with EGD at this time. We discussed the options of conversion to duodenal switch or gastric bypass for additional weight loss. She will consider Plan: Date: 11/17/22 Initial Weight: 140.523 kg Initial BMI: 51.5 Current Weight: 131.088 kg Current BMI: 48.1 Type of Surgery: Vertical Sleeve Gastrectomy Total Volume in Band: Previous Volume: Volume Removed: Volume Added: Band Size:
== END ==
LOC: BARWHC3 14:58
PROVIDERS: ATTEND Surgery
DX: E66.01 Morbid (severe) obesity due to excess calories (principal); K21.9 Gastro-esophageal reflux disease without esophagitis; Z68.42 Body mass index [BMI] 45.0-49.9, adult
CPT/HCPCS: 99211

== ENCOUNTER 2022-12-22 10:16 | Day surgery (SDC) | payer MEDICAID, BC ==
[2022-12-16 13:27] VITALS: BMI 45.1
[~2022-12-22 10:16] MED LIST changes: -DEXAMETHASONE SOD PHOSPHATE 10 MG/ML 1 ML VIAL IV ONE; -ENOXAPARIN 60 MG/0.6 ML SYRINGE SQ ONE; +LACTATED RINGERS 1,000 ML IV SCH; +LIDOCAINE 1% (10MG/ML) FOR IV START INTRADERMA PRN; -MIDAZOLAM 2 MG/2 ML VIAL IV PRN; -ONDANSETRON 4 MG/2 ML VIAL IVP ONE; -SCOPOLAMINE 1.5MG/72HR PATCH TRANSDERM ONE; -ceFAZolin 3 GM in SODIUM CHLORIDE 0.9% 100 ML IVPB ONE
[2022-12-22 11:27] VITALS: TEMP 98.6
[2022-12-22] MEDS ORDERED: PROPOFOL 10 MG/ML 20 ML VIAL IV ONE (11:53)
--- NOTE | 2022-12-22 11:55 | P.GSHP ---
History of Present Illness H&P Date: 12/22/22 Chief Complaint: GERD 42-year-old female here today for EGD. History of sleeve gastrectomy 2016. Patient was intermittent upper abdominal pain and reflux. Has had weight gain. Past Medical History Past Medical History: GERD/Reflux, Thyroid Disorder Additional Past Medical History / Comment(s): hypotension , hypothyroid. no meds for hypothyroid, migraines History of Any Multi-Drug Resistant Organisms: None Reported Past Surgical History: Appendectomy, Bariatric Surgery, Section, Cholecystectomy, Tonsillectomy, Tubal Ligation, Uterine Ablation Additional Past Surgical History / Comment(s): x2, sleeve gastrectomy 08/25/16 Past Anesthesia/Blood Transfusion Reactions: No Reported Reaction Additional Past Anesthesia/Blood Transfusion Reaction / Comment(s): no blood transfusion Smoking Status: Never smoker - Past Family History Mother Family Medical History: Cancer Additional Family Medical History / Comment(s): lap band bariatric surgery Father Family Medical History: Coronary Artery Disease (CAD), Diabetes Mellitus, Hypertension, Prostate Disorder Additional Family Medical History / Comment(s): Quadruple bypass at age 60, Medications and Allergies Home Medications Medication Instructions Recorded Confirmed Type Calcium Citrate 500 mg PO TID 12/08/16 12/16/22 History Multivitamins, Thera [Multivitamin 1 tab PO DAILY 12/08/16 12/16/22 History (formulary)] Propranolol [Inderal] 20 mg PO BID 12/16/22 12/16/22 History Topiramate [Topamax] 50 mg PO DAILY 12/16/22 12/16/22 History Allergies Allergy/AdvReac Type Severity Reaction Status Date / Time No Known Allergies Allergy Verified 12/16/22 13:19 Surgical - Exam Vital Signs Temp Pulse Resp BP Pulse Ox 98.6 F 88 16 140/84 98 12/22/22 11:25 12/22/22 11:25 12/22/22 11:25 12/22/22 11:25 12/22/22 11:25 Physical exam: General: Well-developed, well-nourished HEENT: Normocephalic, sclerae nonicteric Abdomen: Nontender, nondistended Extremities: No edema Neuro: Alert and oriented Assessment and Plan (1) GERD (gastroesophageal reflux disease) Narrative/Plan: Will proceed with upper endoscopy Current Visit: No Status: Acute Code(s): K21.9 - GASTRO-ESOPHAGEAL REFLUX DISEASE WITHOUT ESOPHAGITIS SNOMED Code(s): 601291111
--- NOTE | 2022-12-22 12:07 | P.PCN ---
Date of Procedure: 12/22/22 Procedure(s) Performed: Preoperative Dx: GERD Postoperative Dx: Mild gastritis, small hiatal hernia Procedure: EGD with Bx Anesthesia: Sedation Endoscopist: Dr. Chapman Specimens: Antral Endoscopic Procedure: The patient was on the endoscopy table in the left decubitus position. The Olympus gastroscope was inserted into the oropharynx and passed under direct visualization to the region of the third portion of the duodenum. From that point the scope was slowly withdrawn inspecting all surfaces carefully. There were no neoplastic inflammatory or polypoid lesions throughout the duodenum. The pylorus was widely patent. The stomach was carefully inspected. There was mild gastritis present. The previous staple line was intact. No retroflexion was able to take place. As the scope was withdrawn into the proximal stomach a hiatal hernia was suspected. I estimate the GE junction the present approximately 3-4 cm above the diaphragm. The esophagus was then carefully examined. There were no neoplastic inflammatory or polypoid lesions throughout the visualized esophagus. The patient was then taken to the recovery room in stable condition per anesthesia guidelines. Recommendations: Resume diet. We'll discuss endoscopic findings with patient. Patient would be candidate for conversion to gastric bypass. Advise tertiary care bariatric evaluation.
[2022-12-22] MEDS ORDERED: IV FLUID CONTINUATION 800 ML IV ONE (12:11)
[2022-12-22 12:24] VITALS: RESP 20
[2022-12-22 12:36] VITALS: BP 128/78; PULSE 59
== END 2022-12-22 12:50 ==
LOC: ORWHC2ENDO 10:16
PROVIDERS: ATTEND Surgery
DX: K29.50 Unspecified chronic gastritis without bleeding (principal); K44.9 Diaphragmatic hernia without obstruction or gangrene; K21.9 Gastro-esophageal reflux disease without esophagitis; Z98.84 Bariatric surgery status; E03.9 Hypothyroidism, unspecified; G43.909 Migraine, unspecified, not intractable, without status migrainosus; Z90.49 Acquired absence of other specified parts of digestive tract; Z79.899 Other long term (current) drug therapy
CPT/HCPCS: 81025; 88305; 43239; J2704